=== PATIENT | female | born 1930 | race Caucasian/White ===

== ENCOUNTER 2017-11-09 03:06 | Observation (INO) | payer MEDICARE ==
[~2017-11-09] VITALS: Ht 160 cm; Wt 79.4 kg
[2017-11-09] MEDS ORDERED: ZOLOFT25 MG PO (03:11)
[2017-11-09] MEDS ORDERED: GABAPENTIN100 MG PO (03:11)
[2017-11-09] MEDS ORDERED: KLONOPIN0.5 MG PO (03:11)
[2017-11-09] MEDS ORDERED: LIPITOR10 MG PO (03:12)
[2017-11-09] MEDS ORDERED: PROTONIX40 MG PO (03:12)
[2017-11-09] MEDS ORDERED: TENORMIN50 MG PO (03:12)
[2017-11-09] MEDS ORDERED: LEVOXYL50 MCG PO (03:12)
[2017-11-09] MEDS ORDERED: DYAZIDE 37.5/251 CAP PO (03:13)
[2017-11-09] MEDS ORDERED: NOVOLOG100 U/M1 SC (03:13)
[2017-11-09] MEDS ORDERED: COLACE100 MG PO (03:14)
[2017-11-09] MEDS ORDERED: NOVOLIN 70/30 110 ML SC (03:14)
[2017-11-09 03:50] LABS: BASOPHILS 0.4 % (0-2); EOSINOPHILS 5.3 % (0-7); HEMATOCRIT 40.4 % (36.0-48.0); HEMOGLOBIN 13.1 g/dL (12-16); IMMATURE GRANULOCYTES 0.4 % (0-5); LYMPHOCYTES 35.3 % (15-50); MCH 31.6 pg (26.0-34.0); MCHC 32.4 g/dL (31.0-37.0); MCV 97.3 fL (80.0-100.0); MEAN PLATELET VOLUME 9.8 fL (7.4-10.4); MONOCYTES 8.8 % (2-11); NEUTROPHILS 49.8 % (40-80); PLATELET COUNT 223 10x3/uL (130-400); RBC 4.15 10x6/uL (4.00-5.40); WBC 7.5 10x3/uL (4.8-10.8)
[2017-11-09 04:04] LABS: ALBUMIN 3.3 g/dL (3.4-5.0); ANION GAP 9.2 mmol/L (8-16); BILIRUBIN - TOTAL 0.21 mg/dL (0.2-1.3); CALCIUM 8.4 mg/dL (8.5-10.1); CARBON DIOXIDE 27.1 mmol/L (21.0-32.0); CREATININE - SERUM 1.2 mg/dL (0.6-1.3); POTASSIUM - SERUM 4.3 mmol/L (3.5-5.1); PROTEIN - SERUM 6.6 g/dL (6.4-8.2)
[2017-11-09 05:24] VITALS: BP 144/70
[2017-11-09 06:38] VITALS: BP 141/71; BMI 31.0
[2017-11-09 10:22] VITALS: BP 141/71
[2017-11-09] MEDS ORDERED: ANUSOL-HC25 MG RC (10:51)
[2017-11-09] MEDS ORDERED: ANUSOL-HC 2.5%30 GM RC (10:53)
[2017-11-09] MEDS ORDERED: GLYCERIN A1 SUPP.REC RC (10:53)
[2017-11-09] MEDS ORDERED: MELATONIN5 MG PO (10:54)
[2017-11-09] MEDS ORDERED: IBUPROFEN400 MG PO (10:54)
[2017-11-09] MEDS ORDERED: ZANTAC150 MG PO (10:55)
[2017-11-09] MEDS ORDERED: MIRALAX17 GM PO (10:55)
[2017-11-09] MEDS ORDERED: VITAMIN D2000 UNIT PO (10:56)
[2017-11-09 11:32] VITALS: Ht 160 cm; Wt 79.4 kg
== END 2017-11-09 15:38 | disposition home or self-care (01) ==
LOC: D.ER 03:06 → D.MS 05:10 → OBSVTIME 05:10 → D.MS 15:38
PROVIDERS: Family Medicine
DX: K59.09 Other constipation (principal); E11.9 Type 2 diabetes mellitus without complications; Z86.73 Personal history of transient ischemic attack (TIA), and cerebral infarction without residual deficits; I10 Essential (primary) hypertension; F03.90 Unspecified dementia, unspecified severity, without behavioral disturbance, psychotic disturbance, mood disturbance, and anxiety

== ENCOUNTER → 2018-02-19 12:46 | Outpatient (CLI) | payer MEDICARE ==
[2017-11-09 11:32] VITALS: BMI 31.0
[~2018-02-19 12:46] MED LIST: ANUSOL-HC 2.5%30 GM RC; ANUSOL-HC25 MG RC; COLACE100 MG PO; DYAZIDE 37.5/251 CAP PO; GABAPENTIN100 MG PO; GLYCERIN A1 SUPP.REC RC; IBUPROFEN400 MG PO; KLONOPIN0.5 MG PO; LEVOXYL50 MCG PO; LIPITOR10 MG PO; MELATONIN5 MG PO; MIRALAX17 GM PO; NOVOLIN 70/30 110 ML SC; NOVOLOG100 U/M1 SC; PROTONIX40 MG PO; TENORMIN50 MG PO; VITAMIN D2000 UNIT PO; ZANTAC150 MG PO; ZOLOFT25 MG PO
== END | disposition home or self-care (01) ==
LOC: D.LABREF 12:46
DX: N76.0 Acute vaginitis (principal)

== ENCOUNTER 2018-03-09 18:21 | Emergency (ER) | payer MEDICARE ==
[~2018-03-09] VITALS: Ht 160 cm; Wt 79.5 kg
[2018-03-09 18:22] VITALS: Ht 160 cm; Wt 79.5 kg
[2018-03-09] MEDS ORDERED: KLONOPIN0.5 MG PO (18:24)
[2018-03-09] MEDS ORDERED: FLORANEX / LACT1 TAB (18:25)
[2018-03-09] MEDS ORDERED: HYDROCODON-ACE1 EAC7 PO (21:02)
[2018-03-09 22:03] VITALS: BP 154/57
== END 2018-03-09 22:03 ==
LOC: D.ER 18:21
DX: M51.36 Other intervertebral disc degeneration, lumbar region (principal); M48.36 Traumatic spondylopathy, lumbar region